=== PATIENT | female | born 1965 | race Caucasian/White ===

== ENCOUNTER 2019-03-24 18:49 | Inpatient (IN) ==
[2019-03-24] MEDS ORDERED: Mag Hydrox/Al Hydrox/Simeth 30 ML UDC PO PRN (23:00)
[2019-03-24] MEDS ORDERED: *HR* LORazepam 2 MG/ML VIAL IM PRN (23:00)
[2019-03-24] MEDS ORDERED: Haloperidol Lactate 5 MG/ML VIAL IM PRN (23:00)
[2019-03-24] MEDS ORDERED: Ibuprofen 400 MG TABLET PO PRN (23:00)
[2019-03-24] MEDS ORDERED: MOM Conc 10 ML UD.LIQ PO PRN (23:00)
[2019-03-24] MEDS ORDERED: *HR* LORazepam 1 MG TABLET PO PRN (23:00)
[2019-03-24] MEDS: hydrOXYzine pamoate 25 MG CAPSULE PO PRN (23:43)
[2019-03-25] MEDS: traZODone 50 MG TABLET PO PRN ×2 (00:16→22:45)
[2019-03-25] MEDS: Nicotine 21 MG PATCH.TD24 TD SCH (08:33)
[2019-03-25] MEDS: hydrOXYzine pamoate 25 MG CAPSULE PO PRN (22:45)
[2019-03-26] MEDS ORDERED: NON-FORMULARY MEDICATION 1 EACH EACH (Hydroxyzine Hcl [Hydroxyzine Hcl] 50 MG) PO PRN (08:48)
[2019-03-26] MEDS ORDERED: AMPHETAMINE PO SCH (09:00)
[2019-03-26] MEDS ORDERED: DEXTROAMPHETAMINE PO SCH (09:00)
[2019-03-26] MEDS: Nicotine 21 MG PATCH.TD24 TD SCH (10:05)
[2019-03-26] MEDS ORDERED: hydrOXYzine pamoate 25 MG CAPSULE PO PRN (10:47)
[2019-03-26 12:11] VITALS: BP 84/50
== END 2019-03-26 16:30 | disposition home or self-care (01) | DRG 751 ==
LOC: 1ANU 18:49 → INTOOBSV 18:49
PROVIDERS: ADMIT Psychiatry & Neurology Psychiatry; ATTEND Psychiatry & Neurology Psychiatry